=== PATIENT | female | born 1985 | race Caucasian/White ===

== ENCOUNTER → 2020-06-03 10:29 | Outpatient (BNVA) | payer OTHER, SELFPAY | PROVIDERS: Family Provider Family Medicine; PCP Family Medicine; Visit Provider Obstetrics & Gynecology | DX: N94.6 Dysmenorrhea, unspecified (principal); N85.2 Hypertrophy of uterus; N83.02 Follicular cyst of left ovary; N83.01 Follicular cyst of right ovary | CPT/HCPCS: 76830 ==

== ENCOUNTER → 2020-07-14 08:05 | Outpatient (BNVA) | payer OTHER, SELFPAY | PROVIDERS: Family Provider Family Medicine; PCP Family Medicine; Visit Provider Surgery | DX: K62.5 Hemorrhage of anus and rectum (principal); Z20.828 Contact with and (suspected) exposure to other viral communicable diseases; Z11.59 Encounter for screening for other viral diseases | CPT/HCPCS: 87635 ==

== ENCOUNTER → 2020-07-27 10:53 | Outpatient (BNVA) | payer OTHER, SELFPAY | PROVIDERS: PCP Family Medicine; Visit Provider Surgery | DX: K62.5 Hemorrhage of anus and rectum (principal) | CPT/HCPCS: 87635 ==

== ENCOUNTER 2020-08-01 07:07 | Day surgery (SDC) | payer OTHER, SELFPAY ==
[2020-08-01 07:21] VITALS: BP 134/98; PULSE 121; RESP 18; TEMP 37.1; O2SAT 99
[2020-08-01 07:33] LABS: OR HCG Qualitative Urine Negative (Negative)
[2020-08-01] MEDS: sodium chloride 0.9% 1,000 ML 30 ML IV (07:40)
--- NOTE | 2020-08-01 08:12 | P.ANESASSM_ITS ---
Pre-Anesthetic Assessment Pre-Anesthetic Assessment: Height/Weight: Height 1.55 m Weight 72.121 kg Temp Pulse Resp BP Pulse Ox 98.8 F 121 H 18 134/98 99 08/01/20 07:21 08/01/20 07:21 08/01/20 07:21 08/01/20 07:21 08/01/20 07:21 Preop Diagnosis: Bleeding per rectum Proposed Procedure: Operation Date: 08/01/20 08:35 Proposed Procedures p Colonoscopy 82033 [id number] K62.5 K64.9(Not Applicable) - Riki Dawson MD s Exam Under Anesthesia(Not Applicable) - Riki Dawson MD s Hemorroidectomy(Not Applicable) - Riki Dawson MD Last intake: Intake Last Liquid Date 08/01/20 Last Liquid Time 02:30 Last Solid Date 07/31/20 Social: Social History: No alcohol and No tobacco Exam: Pre-Anes Outpt Exam: alert, oriented x 3, clear to auscultation bilaterally and regular rate & rhythm Airway: Submandibular: WNL Cervical ROM: WNL MP: 2 Dentition: Full Pulmonary: Pulmonary: None reported CV/HEM: CV/HEM: None reported : : None reported Hepatic: Hepatic: None reported GI: Comments: Rectal bleeding Metabolic: Comments: Obese Musc/skel: Musc/skel: None reported Neuropsych: Neuropsych: Anxiety and Depression Anesthetic Plan: ASA status: 2 Anesthesia: MAC Other: h/o PONV Risk of > 500 ml blood loss (7ml/kg in children): No PFSH Anesthesia PFSH: Medical History Anxiety and depression Symptoms on and off since a teenager and was diagnosed in 2010 and has been on antidepressants since then. Is currently on medication managed by PMD. She does not have a therapist No pertinent past medical history Denies diabetes, asthma, hypertension, seizures, DVT/PE PCP: Dr. Mitchell Surgical History S/P left knee arthroscopy S/P ORIF (open reduction internal fixation) fracture 2009, left arm S/P tonsillectomy in 1994 S/P tubal ligation 01/13/2015-laparoscopic bilateral partial salpingectomy for sterilization by Dr. Hodges at [facility] [place]. Pathology showed complete transection and normal morphology. Family History Grandmother Breast cancer maternal, diagnosed in her 60s Diabetes paternal Hypertension paternal Heart disease paternal Mother Diabetes Father Diabetes Hyperlipidemia Hypertension Heart disease Pancreatic cancer Brother Diabetes x 2 Hypertension x 2 Colon cancer diagnosed at age 45 when he had a colonoscopy for rectal bleeding Family/Other Pancreatic cancer paternal uncle Grandfather Heart disease paternal Denies family history of Ovarian cancer DVT (deep venous thrombosis) Pulmonary embolism Uterine cancer Thyroid condition Female Reproductive History: Date of last menstrual period: 07/19/20 Data Anesthesia Other Labs: Laboratory Results - last 48 hr 08/01/20 07:31 Urine HCG, Qual Negative Cardiac Studies: No Data to Display
--- NOTE | 2020-08-01 08:37 | W.PM.OPSFHP ---
Same Day Surgery H&P Indication for Procedure/HPI DATE OF PROCEDURE: August 01, 2020 CHIEF COMPLAINT/INDICATIONFOR SURGICAL PROCEDURE: Bleeding per rectum PREOP DIAGNOSIS: Bleeding per rectum PLANNED PROCEDRUE: Operation Date: 08/01/20 08:35 Proposed Procedures p Colonoscopy [id number] K62.5 K64.9(Not Applicable) - Riki Dawson MD s Exam Under Anesthesia(Not Applicable) - Riki Dawson MD s Hemorroidectomy(Not Applicable) - Riki Dawson MD This is a pleasant 35 years old female patient referred to my practice for further evaluation as patient believes that she had history of hemorrhoids and she has been having issues for the past 20 years particularly after her second delivery. Patient also reports history of her brother had history of colon cancer at age of 45. She reports intermittent bleeding with stool. She comes today for further evaluation for potential intervention. She reports the blood comes usually when she is constipated otherwise she does not feel hemorrhoids but she used to have them before many years. Interim history 08/01/2020 Patient comes today for colonoscopy with possible biopsy and examination under anesthesia with possible hemorrhoidectomy. ROS All systems have been reviewed negative except as per the above or per problem list Medications/Allergies* Home Medications Medication Instructions Recorded Confirmed Type cetirizine 10 mg capsule 10 mg PO DAILY 05/25/20 08/01/20 History cholecalciferol (vitamin D3) 125 125 mcg PO DAILY 05/25/20 08/01/20 History mcg (5,000 unit) capsule escitalopram oxalate 20 mg tablet 20 mg PO DAILY 05/25/20 08/01/20 History bupropion HCl 150 mg PO QAM 07/15/20 08/01/20 History Allergies/Adverse Reactions Allergy/AdvReac Type Severity Reaction Status Date / Time venlafaxine [From Effexor] AdvReac nausea, Verified 08/01/20 08:38 body aches, sweating Current Medications: Generic Name Dose Route Start Last Admin Trade Name Freq PRN Reason Stop Dose Admin Sodium Chloride 1,000 mls @ 30 mls/hr 08/01/20 07:15 08/01/20 07:40 Sodium Chloride 0.9% IV 08/02/20 07:14 30 mls/hr .Q24H EUGENIO Administration Pertinent History/Comorbid Conditions* Medical History (Updated 06/02/20 @ 13:14 by Riki Dawson MD) Anxiety and depression Symptoms on and off since a teenager and was diagnosed in 2010 and has been on antidepressants since then. Is currently on medication managed by PMD. She does not have a therapist No pertinent past medical history Denies diabetes, asthma, hypertension, seizures, DVT/PE PCP: Dr. Mitchell Surgical History (Updated 05/27/20 @ 08:32 by Lorenzo Gary MD) S/P left knee arthroscopy S/P ORIF (open reduction internal fixation) fracture 2009, left arm S/P tonsillectomy in 1994 S/P tubal ligation 01/13/2015-laparoscopic bilateral partial salpingectomy for sterilization by Dr. Hodges at [facility] [place]. Pathology showed complete transection and normal morphology. Family History (Updated 05/25/20 @ 15:40 by Lidia Dejesus RN) Colon cancer Brother diagnosed at age 45 when he had a colonoscopy for rectal bleeding Pancreatic cancer Father Family/Other paternal uncle Diabetes Grandmother paternal Mother Father Brother x 2 Heart disease Grandmother paternal Father Grandfather paternal Hyperlipidemia Father Breast cancer Grandmother maternal, diagnosed in her 60s Hypertension Grandmother paternal Father Brother x 2 Denies family history of Ovarian cancer DVT (deep venous thrombosis) Pulmonary embolism Uterine cancer Thyroid condition Pertinent Exam Findings alert, oriented x 3, clear to auscultation bilaterally, regular rate & rhythm and procedure specific exam findings (Abdominal examination nontender nondistended soft) Recommendations Surgery/Procedure today (Colonoscopy with possible biopsy possible polypectomy with examination under anesthesia possible hemorrhoidectomy) Coding Level of Care Code Acute Box Truck Driver for Charli Multani
[2020-08-01 09:00] VITALS: BP 95/60; PULSE 94; RESP 18; TEMP 36.4; O2SAT 95
--- NOTE | 2020-08-01 09:26 | P.OP_ITS ---
Operative Report Date of procedure: August 01, 2020 Pre-op Diagnosis: Bleeding per rectum Post-op Diagnosis: Small left lower lateral external hemorrhoid without complication, otherwise normal colonoscopy Post-op Findings: Small left lower lateral external hemorrhoid without complication, otherwise normal colonoscopy Procedure Done: Colonoscopy with Examination under anaesthesia Surgeon: Riki Dawson Stripping Cutter And Winder: insulation technician Cheko Shaw nurse Chayito Anesthesia: MAC (district fire chief Marquez) Estimated blood loss (mL): 0 Condition: stable Disposition: same day Brief History: This is a pleasant 35 years old female patient referred to my practice for further evaluation as patient believes that she had history of hemorrhoids and she has been having issues for the past 20 years particularly after her second delivery. Patient also reports history of her brother had history of colon cancer at age of 45. She reports intermittent bleeding with stool. She comes today for further evaluation for potential intervention. She reports the blood comes usually when she is constipated otherwise she does not feel hemorrhoids but she used to have them before many years. I did cher-ae heights the patient for Colonoscopy with EUA and possible hemorroidectomy. Informed consent per chart Procedure: Patient was identified in the holding area, was taken to the OR placed first in supine position, then was placed in left lateral position, time- out was done verifying the patient's name, date of , and procedure, all were in agreement. IV propofol was infused by anesthesia Perianal examination showed small left lower lateral external hemorrhoid without complication and digital rectal examination showed no masses or blood, no evidence of fissures or sinuses or fistulae or induration or abscess formation or cerpitus or perineal body abnormalities. Following that the colonoscope was then introduced via the anus under direct visualization, all the way to the cecum, prep of the colon was appropriate, there were no polyps identified or masses or diverticular disease or strictures, the scope was then retrieved back ,time for withdrawal exceeded 6 minutes, CO2 gas was deflated on the way out. Retroflex was done and showed insignificant findings. Patient was taken to the recovery area in stable condition I was present for the whole entire procedure
[2020-08-01 10:03] VITALS: BP 105/72; PULSE 88; RESP 18; O2SAT 98
--- NOTE | 2020-08-01 11:33 | PM.PACU ---
PACU note PACU note: VSS Post-Anesthesia Exam: awake Disposition: discharged
== END 2020-08-01 10:13 | disposition home or self-care (01) ==
PROVIDERS: Anesthesiology; PCP Family Medicine; Visit Provider Surgery
PROC: 0DJD8ZZ Inspection of Lower Intestinal Tract, Via Natural or Artificial Opening Endoscopic (ICD-10-PCS; CPT 45378; principal; 2020-08-01 08:35)
DX: K92.1 Melena (principal); K64.4 Residual hemorrhoidal skin tags; Z80.0 Family history of malignant neoplasm of digestive organs; Z83.3 Family history of diabetes mellitus; Z80.3 Family history of malignant neoplasm of breast; Z82.49 Family history of ischemic heart disease and other diseases of the circulatory system; E66.8 Other obesity; Z68.30 Body mass index [BMI] 30.0-30.9, adult
CPT/HCPCS: 12345; 45378; 81025; 84703; J2704; J7030

== ENCOUNTER → 2021-03-22 09:55 | Outpatient (BNVA) | payer OTHER, SELFPAY | PROVIDERS: PCP Family Medicine; Visit Provider Nurse Practitioner Family | DX: Z20.822 Contact with and (suspected) exposure to COVID-19 (principal) | CPT/HCPCS: 87635 ==

== ENCOUNTER → 2021-08-03 15:50 | Outpatient (BNVA) | payer OTHER, SELFPAY | PROVIDERS: PCP Family Medicine; Visit Provider Nurse Practitioner Family | DX: Z20.822 Contact with and (suspected) exposure to COVID-19 (principal) | CPT/HCPCS: 87426 ==

== ENCOUNTER → 2021-08-29 17:31 | Outpatient (BNVA) | payer OTHER, SELFPAY | PROVIDERS: PCP Family Medicine; Visit Provider Nurse Practitioner Family | DX: Z20.822 Contact with and (suspected) exposure to COVID-19 (principal); Z11.52 Encounter for screening for COVID-19 | CPT/HCPCS: 87635 ==

== ENCOUNTER 2022-03-20 16:10 | Outpatient (CLI) | payer OTHER, SELFPAY | END 2022-03-20 16:11 | disposition home or self-care (01) | LOC: SLEEP 16:12 | PROVIDERS: PCP Family Medicine; Visit Provider Family Medicine | DX: R40.0 Somnolence (principal); G47.10 Hypersomnia, unspecified | CPT/HCPCS: G0399 ==

== ENCOUNTER → 2022-10-10 10:18 | Outpatient (BNVA) | payer OTHER, SELFPAY | PROVIDERS: PCP Family Medicine; Visit Provider Family Medicine | DX: Z00.00 Encounter for general adult medical examination without abnormal findings (principal); Z51.81 Encounter for therapeutic drug level monitoring | CPT/HCPCS: 80053; 80061; 82306; 84443; 85025 ==

== ENCOUNTER → 2022-11-29 12:00 | Outpatient (BNVA) | payer OTHER, SELFPAY | PROVIDERS: PCP Family Medicine; Visit Provider Nurse Practitioner Women's Health | DX: Z12.4 Encounter for screening for malignant neoplasm of cervix (principal) | CPT/HCPCS: 87624 ==

== ENCOUNTER 2023-02-12 22:22 | Emergency (ER) | payer OTHER, SELFPAY ==
[2023-02-12 22:25] VITALS: BP 139/84; PULSE 111; RESP 12; TEMP 36.8; O2SAT 99; BMI 27.3
[2023-02-12 22:30] VITALS: BP 110/78; O2SAT 98
--- NOTE | 2023-02-12 22:42 | ED_ITS ---
HPI - Back Pain/Injury General: Chief Complaint: Back Pain/Injury Stated Complaint: Rt arm tingling going up face Time Seen by Provider: 02/12/23 22:23 Source: patient Mode of arrival: ambulatory Limitations: no limitations History of Present Illness: 38-year-old female states that she strained her left lower back 2 days ago states she usually sleeps on her left side is been sleeping on her right side states she is now getting some numbness from her neck down her right arm. Some slight right-sided neck pain she denies any other fever denies any weakness. Associated symptoms: Deny abdominal pain, chills, fever(s), nausea or vomiting Review of Systems Const: Denies: fever(s), chills, body aches or change in appetite Eyes: Denies: blurry vision or eye discomfort ENMT: Denies: throat pain or dental pain Card: Denies: chest pain Resp: Denies: dyspnea GI: Denies: abdominal pain, nausea, vomiting or diarrhea Musc: Reports: back pain; Denies: neck pain Skin/Breast: Denies: rash Neuro: Reports: numbness in extremities; Denies: headache(s) PFSH ED PFSH: Medical History Anxiety and depression Symptoms on and off since a teenager and was diagnosed in 2010 and has been on antidepressants since then. Is currently on medication managed by PMD. She does not have a therapist No pertinent past medical history Denies diabetes, asthma, hypertension, seizures, DVT/PE PCP: Dr. Mitchell Surgical History History of colonoscopy with polypectomy (~07/2020) S/P left knee arthroscopy 2010 S/P ORIF (open reduction internal fixation) fracture 2009, left arm S/P tonsillectomy in 1994 S/P tubal ligation 01/13/2015-laparoscopic bilateral partial salping[place] [facility] [place] Pathology showed complete transection and normal morphology. Family History Grandmother Breast cancer maternal, diagnosed in her 60s Diabetes paternal Hypertension paternal Heart disease paternal Mother Diabetes Father Diabetes Hyperlipidemia Hypertension Heart disease Pancreatic cancer Brother Diabetes x 2 Hypertension x 2 Colon cancer diagnosed at age 45 when he had a colonoscopy for rectal bleeding Family/Other Pancreatic cancer paternal uncle Grandfather Heart disease paternal Denies family history of Ovarian cancer DVT (deep venous thrombosis) Pulmonary embolism Uterine cancer Thyroid condition Social History Smoking and tobacco status: never smoked Physical Exam Const: COMMON NORMALS: no acute distress, patient oriented x3 and healthy appearing HENMT: COMMON NORMALS: normocephalic and atraumatic HEAD & SCALP: normocephalic and atraumatic Neck/C-Spine: COMMON NORMALS: full ROM, supple and no meningeal signs Chest: COMMONS NORMALS: normal inspection of the chest and normal palpation of entire chest wall Resp: COMMON NORMALS: normal respiratory effort, No retractions, No use of accessory muscles and clear to auscultation bilaterally AUSCULTATION: clear to auscultation bilaterally Cardio: COMMON NORMALS: regular rate and No murmurs present (Cardio) RATE: regular rate GI: INSPECTION: Yes normal to inspection Back/Pelvis: OTHER: tenderness over left lower lumbar Extremity: COMMON NORMALS: normal to inspection and full ROM Neuro: COMMON NORMALS: patient oriented x3, moves all extremities and no focal motor deficits MENINGEAL SIGNS: Yes no meningeal signs MOTOR EXAM: 5/5 motor strength present throughout Psych: COMMON NORMALS: mental status grossly normal, Normal thought process present and cooperative THOUGHT PROCESS: Normal thought process present Skin: COMMON NORMALS: no rashes or lesions noted and no wounds GENERAL SKIN EXAM: no rashes or lesions noted Course Vital Signs: Vital signs: Vital Signs Temperature 98.2 F 02/12/23 22:25 Pulse Rate 67 02/12/23 23:38 Respiratory Rate 14 02/12/23 23:38 Blood Pressure 123/80 02/12/23 23:38 Pulse Oximetry 98 02/12/23 23:38 Oxygen Delivery Me thod Room Air 02/12/23 22:25 MDM - Back Pain/Injury Medical Decision Making Patient presents here with some paresthesias likely from sleeping on her right side wrong no signs of stroke distal pulses sensation intact she does have some low back pain likely low back strain we will start her on Naprosyn and Robaxin she is to follow-up with PCP and return if worsening. Medical Records I reviewed the patient's medical records. Labs I reviewed the patient's lab results. EKG Data EKG 1: I personally reviewed and interpreted this EKG as follows: EKG interpretation date: 02/12/23 EKG interpretation time: 22:44 Interpretation: sinus tach hr [address] or t wave abnormalities qrs 90 qtc 388 Discharge Plan Discharge Patient Disposition: Home Clinical Impression: Low back pain, Paresthesia Condition: Stable Prescriptions: New methocarbamol 750 mg tablet 750 mg PO Q6H PRN (Reason: spasms) Qty: 20 0RF Naprosyn 500 mg tablet 500 mg PO BID PRN (Reason: pain) Qty: 20 0RF No Action Zyrtec 10 mg capsule 10 mg PO DAILY cholecalciferol (vitamin D3) 125 mcg (5,000 unit) capsule 125 mcg PO DAILY azithromycin [Zithromax] 250 mg tablet See Rx Instructions PO .COMPLEX Qty: 6 0RF Rx Instructions: For 250 mg dose pack: take 500 mg today (day 1), then 250 mg for 4 days (days 2-5) PO lamotrigine [Lamictal] 25 mg tablet 50 mg PO DAILY Discharge Orders: Discharge ED (Routine); Ordered 02/12/23 Ordered By: Camille Dietz Referrals: Modesto Mitchell MD [Primary Care Provider] - 1-3 days Discharge Diet: Advance as tolerated Discharge Activity: Resume usual activity Patient Instructions: Paresthesia (ED), Back Pain (ED) Coding Level of Care Code ED Transit Planner for Charli Multani
--- NOTE | 2023-02-12 22:44 | ECG_ITS ---
[facility] Test Date: 2023-02-12 Pat Name: Kayley Ca Department: Room: Gender: Female Lehr Cutter: : 1985 Requested By: Camille Dietz Order Number: [id number] Lakhwinder MD: Lloyd Villalta M.D. Measurements Intervals [place] Rate: 104 P: 44 NV: 148 QRS: 26 QRSD: 90 T: 32 QT: 328 QTc: 432 Interpretive Statements SINUS TACHYCARDIA No previous ECG available for comparison Electronically Signed On 02-13-2023 13:54:25 CDT by Lloyd Villalta M.D. [email or web address]
[2023-02-12] MEDS: dexamethasone 10 mg/mL INJ IM (22:47)
[2023-02-12] MEDS: ketorolac 60 mg/2 mL INJ IM (22:48)
[2023-02-12 23:38] VITALS: BP 123/80; PULSE 67; RESP 14; O2SAT 98
== END 2023-02-12 23:41 | disposition home or self-care (01) ==
PROVIDERS: Emergency Provider Emergency Medicine; PCP Family Medicine
DX: R20.2 Paresthesia of skin (principal); M54.50 Low back pain, unspecified
CPT/HCPCS: 93005; 96372; 99284; J1100; J1885

== ENCOUNTER → 2023-09-21 14:47 | Outpatient (BNVA) | payer OTHER, SELFPAY | PROVIDERS: PCP Family Medicine; Visit Provider Registered Nurse Neonatal Intensive Care | DX: Z20.828 Contact with and (suspected) exposure to other viral communicable diseases (principal) | CPT/HCPCS: 87400 ==

== ENCOUNTER 2024-03-16 08:50 | Outpatient (CLI) | payer OTHER, SELFPAY ==
--- NOTE | 2024-03-16 09:00 | MM_ITS ---
WS: [id number] BILATERAL SCREENING DIGITAL TOMOSYNTHESIS MAMMOGRAM WITH CAD HISTORY: Z12.31 - Encounter for screening mammogram for malignant ... COMPARISON: None available. Bilateral CC and MLO views with tomosynthesis and synthetic mammography submitted. Computer aided det ection analyzed. Breast composition: The breasts are heterogeneously dense, which may obscure small masses. No suspici ous masses, microcalcifications or architectural distortion. MM/[place] [id number] IMPRESSION: BI-RADS: 1-Negative FOLLOW UP: 1 Year Follow-up
== END 2024-03-16 08:51 | disposition home or self-care (01) ==
LOC: RAD 08:51
PROVIDERS: PCP Family Medicine; Visit Provider Nurse Practitioner Women's Health
DX: Z12.31 Encounter for screening mammogram for malignant neoplasm of breast (principal); R92.333 Mammographic heterogeneous density, bilateral breasts
CPT/HCPCS: 77063; 77067

== ENCOUNTER 2024-03-30 17:20 | Outpatient (CLI) | payer OTHER, SELFPAY ==
--- NOTE | 2024-03-30 17:26 | XRR_ITS ---
PROCEDURE INFORMATION: Exam: XR Left Forearm Exam date and time: 03/30/2024 5:29 PM Age: 39 years old Clinical indication: Lower or forearm; Prior surgery; Surgery date: 6+ months; Surgery type: Lt forearm radius/ulna hardware 2009; Patient HX: Pain/knot on the left forearm since Saturday evening. PT has surgery in 2009 placing hardware on the radius and ulna. ; Additional info: Prior fracture with hardware TECHNIQUE: Imaging protocol: Radiologic exam of the left forearm. Views: 2 views. COMPARISON: No relevant prior studies available. FINDINGS: Bones/joints: Intact plate and screw fixation at the distal radial and ulnar shafts. No evidence of hardware complication. No acute fracture or dislocation. Mineralization is normal. Joints are maintained. Soft tissues: Unremarkable. XR/XR forearm LT 2V [id number] IMPRESSION: No acute findings.
== END 2024-03-30 17:21 | disposition home or self-care (01) ==
LOC: RAD 17:20
PROVIDERS: PCP Family Medicine; Visit Provider Nurse Practitioner
DX: S69.92XA Unspecified injury of left wrist, hand and finger(s), initial encounter (principal); Z87.81 Personal history of (healed) traumatic fracture
CPT/HCPCS: 73090

== ENCOUNTER → 2024-05-08 08:25 | Outpatient (BNVA) | payer OTHER, SELFPAY | PROVIDERS: PCP Family Medicine; Visit Provider Student in an Organized Health Care Education/Training Program | DX: M79.632 Pain in left forearm; T84.84XA Pain due to internal orthopedic prosthetic devices, implants and grafts, initial encounter; Y79.2 Prosthetic and other implants, materials and accessory orthopedic devices associated with adverse incidents | CPT/HCPCS: 73090 ==

== ENCOUNTER 2024-05-18 09:54 | Outpatient (CLI) | payer OTHER, SELFPAY ==
--- NOTE | 2024-05-18 10:00 | CT_ITS ---
WS: [id number] CT LEFT FOREARM, NONCONTRAST HISTORY: FOREARM PAIN Technique: All CT scans at [facility] use at least one of these dose optimization techniques: automated exposure control; mA and/or kV adjustment per patient size (includes targeted exams where dose is matched to clinical indication); or iterative reconstruction. DLP: 163.01 mGy.cm COMPARISON: Radiograph 05/08/2024 Plate and screw fixation within the mid to distal thirds of the radius and ulna are identified. No ugalde rdware fracture is identified. No lucency is identified surrounding the screws. There is no fracture. Normal soft tissues. No significant muscle atrophy. No edema or fluid collections. CT/CT forearm LT wo con* [id number] IMPRESSION: 1. Plate and screw fixation of the mid to distal radius and ulna without compl ication. No persistent fracture or nonfusion. 2. No soft tissue mass or edema.
== END 2024-05-18 09:55 | disposition home or self-care (01) ==
LOC: RAD 09:54
PROVIDERS: PCP Family Medicine; Visit Provider Student in an Organized Health Care Education/Training Program
DX: M79.632 Pain in left forearm (principal); Z96.698 Presence of other orthopedic joint implants
CPT/HCPCS: 73200

== ENCOUNTER 2024-06-15 12:59 | Day surgery (SDC) | payer OTHER, SELFPAY ==
[2024-06-15] VITALS (12 sets, daily range): BP systolic 112–132; BP diastolic 61–93; PULSE 81–113; RESP 14–21; TEMP 36.6–37.1; O2SAT 95–100; BMI 25.6
[2024-06-15 13:43] LABS: OR HCG Qualitative Urine Negative (Negative)
--- NOTE | 2024-06-15 13:57 | P.ANESASSM_ITS ---
Pre-Anesthetic Assessment Height/Weight: Height 5 ft 1.5 in Temp Pulse Resp BP Pulse Ox O2 Del Method 98.7 F 111 H 16 132/93 98 Room Air 06/15/24 13:29 06/15/24 13:29 06/15/24 13:29 06/15/24 13:29 06/15/24 13:29 06/15/24 13:35 Preop Diagnosis: Forearm pain Operation Date: 06/15/24 14:40 Proposed Procedures p radius and ulnar shaft hardware removal(Left) - Blayne [place], DO Was Beta Thalia taken within 24 hours: N/A Was Clonidine taken within 24 hours: N/A Last intake: Intake Last Liquid Date 06/15/24 Last Liquid Time 02:00 Last Solid Date 06/14/24 Last Solid Time 19:30 Social No alcohol and No tobacco Exam alert, oriented x 3, clear to auscultation bilaterally and regular rate & rhythm Airway Submandibular: within normal limits Cervical ROM: within normal limits Mallampati: Class II Dentition: full Anesthetic Plan ASA status: 1 Anesthesia: MAC Other: No prior issues with anesthesia NPO since yesterday History of anxiety/depression Patient denies any pulmonary cardiac issues test negative METs greater than 4 Plan for MAC anesthetic with preop nerve block Medications/Allergies Home Medications Medication Instructions Recorded Confirmed Last Taken Type cetirizine 10 mg capsule (Zyrtec) 10 mg PO DAILY 05/25/20 06/11/24 06/11/24 History cholecalciferol (vitamin D3) 125 125 mcg PO DAILY 05/25/20 06/11/24 06/11/24 History mcg (5,000 unit) capsule modafinil 100 mg tablet (Provigil) 100 mg PO DAILY 06/11/24 06/11/24 06/11/24 History Allergies Allergy/AdvReac Type Severity Reaction Status Date / Time venlafaxine [From Effexor] AdvReac nausea, Verified 05/21/24 08:55 body aches, sweating [facility] Anesthesia Medical History Psychiatric care Anxiety and depression Symptoms on and off since a teenager and was diagnosed in 2010 and has been on antidepressants since then. Is currently on medication managed by PMD. She does not have a therapist No pertinent past medical history Denies diabetes, asthma, hypertension, seizures, DVT/PE PCP: Dr. Mitchell Surgical History History of colonoscopy with polypectomy (~07/2020) S/P tonsillectomy in 1994 S/P tubal ligation 01/13/2015-laparoscopic bilateral partial salpingectomy for sterilization by Dr. Hodges at [facility] [place] Pathology showed complete transection and normal morphology. S/P left knee arthroscopy 2010 S/P ORIF (open reduction internal fixation) fracture 2009, left arm Family History Grandmother Breast cancer maternal, diagnosed in her 60s Diabetes paternal Hypertension paternal Heart disease paternal Mother Diabetes Father Diabetes Hyperlipidemia Hypertension Heart disease Pancreatic cancer Brother Diabetes x 2 Hypertension x 2 Colon cancer diagnosed at age 45 when he had a colonoscopy for rectal bleeding Family/Other Pancreatic cancer paternal uncle Grandfather Heart disease paternal Denies family history of Ovarian cancer DVT (deep venous thrombosis) Pulmonary embolism Uterine cancer Thyroid disease Social History Smoking and tobacco/nicotine status: former use of tobacco/nicotine Female Reproductive History Date of last menstrual period: 05/28/24 Data Anesthesia Cardiac Studies: Holter Monitor 06/22/21
[2024-06-15] MEDS: sodium chloride 0.9% 1,000 ML 30 ML IV (14:10)
--- NOTE | 2024-06-15 14:12 | W.PM.OPSFHP ---
Same Day Surgery H&P Indication for Procedure/HPI DATE OF PROCEDURE: June 15, 2024 CHIEF COMPLAINT/INDICATIONFOR SURGICAL PROCEDURE: Left radius and ulnar shaft painful hardware PREOP DIAGNOSIS: Left radius and ulnar shaft painful orthopedic heart PLANNED PROCEDURE: Operation Date: 06/15/24 14:40 Proposed Procedures p radius and ulnar shaft hardware removal(Left) - Blayne Jefferson DO Medications/Allergies* Home Medications Medication Instructions Recorded Confirmed Type cetirizine 10 mg capsule (Zyrtec) 10 mg PO DAILY 05/25/20 06/11/24 History cholecalciferol (vitamin D3) 125 125 mcg PO DAILY 05/25/20 06/11/24 History mcg (5,000 unit) capsule modafinil 100 mg tablet (Provigil) 100 mg PO DAILY 06/11/24 06/11/24 History Allergies/Adverse Reactions Allergy/AdvReac Type Severity Reaction Status Date / Time venlafaxine [From Effexor] AdvReac nausea, Verified 05/21/24 08:55 body aches, sweating Current Medications: Generic Name Dose Route Start Last Admin Trade Name Freq PRN Reason Stop Dose Admin Sodium Chloride 1,000 mls @ 30 mls/hr 06/15/24 13:15 06/15/24 14:10 Sodium Chloride 0.9% IV 06/16/24 13:14 30 mls/hr .Q24H EUGENIO Administration Pertinent History/Comorbid Conditions* Medical History (Updated 05/21/24 @ 11:33 by Roger Watson MD) Psychiatric care Anxiety and depression Symptoms on and off since a teenager and was diagnosed in 2010 and has been on antidepressants since then. Is currently on medication managed by PMD. She does not have a therapist No pertinent past medical history Denies diabetes, asthma, hypertension, seizures, DVT/PE PCP: Dr. Mitchell Surgical History (Updated 09/10/21 @ 12:04 by Lorenzo Gary MD) History of colonoscopy with polypectomy (~07/2020) S/P tonsillectomy in 1994 S/P tubal ligation 01/13/2015-laparoscopic bilateral partial salpingectomy for sterilization by Dr. Hodges at [facility] [place]. Pathology showed complete transection and normal morphology. S/P left knee arthroscopy 2010 S/P ORIF (open reduction internal fixation) fracture 2009, left arm Family History (Updated 05/25/20 @ 15:40 by Lidia Dejesus RN) Colon cancer Brother diagnosed at age 45 when he had a colonoscopy for rectal bleeding Pancreatic cancer Father Family/Other paternal uncle Diabetes Grandmother paternal Mother Father Brother x 2 Heart disease Grandmother paternal Father Grandfather paternal Hyperlipidemia Father Breast cancer Grandmother maternal, diagnosed in her 60s Hypertension Grandmother paternal Father Brother x 2 Denies family history of Ovarian cancer DVT (deep venous thrombosis) Pulmonary embolism Uterine cancer Thyroid disease Social History Smoking and tobacco/nicotine status: former use of tobacco/nicotine Pertinent Exam Findings alert, oriented x 3, operative site marked and procedure specific exam findings Please refer to detailed orthopedic examination on 05/08/2024: Examination of the left forearm demonstrates patient has incisions over the radius and ulna these all appear to be well-healed no signs of infection. Slight prominence over the subcutaneous border of the ulna this appears to be related to the hardware, significantly tender to palpation. There is no clinical deformity noted about the left forearm. Patient does have tenderness most pronounced over the ulnar border over the hardware. Once again no signs of infection. She is able to perform cardinal hand movements. She does have positive Tinel's over the hardware on the ulna. Negative Tinel's or median nerve compression test at the carpal tunnel. There is palpation proximally at the elbow. Left upper extremity is warm well-perfused brisk capillary refill less than 2 seconds. Recommendations Surgery/Procedure today Other Plans: Plan to proceed to the OR today for left radius and ulna shaft orthopedic hardware removal. Patient had a CT scan confirming healed radius and ulnar shaft fractures. At this point time patient understands the ins and outs procedure the risk benefits complication alternatives surgery and through shared decision making elected proceed with surgical invention at this time. All questions answered at this time. Coding Level of Care Code Acute Code for Chg Fwd
[2024-06-15] MEDS: ketorolac 30 mg/mL INJ IVP (14:25)
[2024-06-15] MEDS: acetaminophen 1,000 MG/100 ML PIGGYBACK 400 MG IV (14:25)
[2024-06-15] MEDS: scopolamine 1.5 Patch 1 PATCH TRANSDERMA (14:25)
[2024-06-15] MEDS: ceFAZolin 2,000 MG in sodium chloride 0.9% (plus) 50 ML 100 MG IV (14:35)
--- NOTE | 2024-06-15 14:35 | ANES.PROC ---
Anesthesia Procedures Procedure/Date: 06/15/24 Nerve Block ^: Nerve Block 1: Main Anesthesia: other (100mcg fentanyl and 2mg versed) Time Out Performed: Yes Nerve block location: supraclavicular Anesthesia monitors applied: pulse oximetry, EKG, BP cuff and oxygen Nerve block position: supine Anesthetic Used: ropivicaine 0.5% Amount of anesthesia used (mL): 30 Ultrasound used to: recognize landmarks Nerve Stimulator Used?: Yes Interscalene/Femoral BLK: other needle (pjunk) Injection: neg aspiration of heme Patient Tolerated Procedure: well Complications: none Additional Comments: decadron 4mg added to block
--- NOTE | 2024-06-15 14:39 | SUR.PREOP ---
14:15 left super clavicular nerve block performed by doctor Hylton. PT on monitor showing NSR, and O2 via nasal cannula. 30ml of 0.5% ropivacaine used. PT tolerated procedure well.
--- NOTE | 2024-06-15 15:54 | XR_ITS ---
WS: [id number] C-ARM RADIOGRAPHS LEFT FOREARM; 3 IMAGES HISTORY: OR PICS COMPARISON: 05/08/2024 Plate and screws in the mid to distal radius and ulna have been removed. Screw tracks are noted. Norm al alignment. No residual fracture line identified. XR/XR forearm LT 2V [id number] IMPRESSION: Intraoperative imaging during hardware removal from the radius and ulna.
--- NOTE | 2024-06-15 16:24 | P.BOP_ITS ---
Date of Procedure: [June 15, 2024] Surgeon: [Dr. Jefferson DO] Concrete Craftsman(s): [Evelio Jefferson PA-C] Procedure(s) performed: [Left radius shaft orthopedic hardware removal and left ulnar shaft orthopedic hardware removal] Findings of the procedure(s): [Left radius painful orthopedic hardware and left ulnar painful orthopedic hardware. Procedure went well and as planned.] Estimated blood loss: [20 mL] Specimen(s) removed: [Orthopedic hardware removed?2 plates and 12 screws] Post-operative diagnosis: [Left radius painful orthopedic hardware and left ulnar painful orthopedic hardware]
--- NOTE | 2024-06-15 16:26 | PM.PACU ---
PACU note Narrative: Patient is a 39-year-old female that had a left radius and ulna shaft orthopedic hardware removal. Patient transferred to PACU in stable condition. Pain is well controlled. Dressing on hand is dry and in place. Patient's fingers are warm and well-perfused. Unable to perform any further assessment on motor sensation due to residual anesthetic. Exam: unarousable Disposition: discharged
[2024-06-15] MEDS: meperidine 50 mg/mL INJ 12.5 MG IVP (16:40)
--- NOTE | 2024-06-15 17:10 | P.OP_ITS ---
Operative Report Date of procedure: June 15, 2024 Pre-op diagnosis: Left forearm radius and ulna orthopedic hardware painful Post-op diagnosis: Same Post-op findings: See operative report narrative Procedure done: Left radius shaft orthopedic hardware removal Left ulnar shaft orthopedic hardware removal Implants: Removal of orthopedic hardware to the radial shaft and ulnar shaft Specimens removed/disposition: Orthopedic hardware removed 2 plates and 12 screws Surgeon: Blayne Jefferson DO Laboratory Miller: Evelio Jefferson PA-C: BEKA was necessary for assistance in this case with hand and forearm positioning to execute the procedure, retraction and protection of neurovascular structures as well as to assist with wound closure and dressing application. Anesthesia: General and Nerve Block Estimated blood loss: 20 mL 47min IV fluids: See anesthesia record Complications: None Findings: See operative report narrative Condition: stable Disposition: same day Brief History: Patient is a 39-year-old female who sustained a previous trauma to the left forearm having both bone forearm fracture and underwent ORIF to both of these. It has been years later and now she is having pain at the hardware and she would like to have this removed. At this point in time her fractures have healed completely with CT scan to confirm this we talked about treatment options far as continue nonoperative versus operative invention through shared decision-making she like to pursue surgical intervention of a left radius and ulnar shaft hardware removal. Patient understands the ins outs procedure the risk benefits complication alternatives surgery and through shared decision making like to proceed with surgical intervention today consent was reviewed and signed with patient. All questions answered. Procedure: Patient was seen eval in the preoperative holding area. Consent was reviewed and signed with patient. Correct extremity was then subsequently marked. Shana ent seen evaluated by anesthesia was cleared for surgery was taken back to the operative suite patient was placed in supine position operative parts well- padded patient appropriately secured to bed. Patient had an armboard applied to the left upper extremity. Patient underwent anesthesia per the anesthesia department. Left upper extremity was then prepped and draped in standard orthopedic fashion. Final timeout performed. Patient received appropriate preoperative antibiotics. Esmarch tourniquet was used exsanguinate the left upper extremity tourniquet was insufflated to 250 mmHg. I started off with the ulna. A standard incision made over the previous incision which is over the subcutaneous border. Sharp scalpel incision was made through skin and subcutaneous tissue. I then switched to Littler dissection scissors and came down directly over the ulna. I then encountered the plate and utilized Bovie as well as sharp scalpel excision and elevators to elevate and remove all scar tissue around the plates and screws. There is no signs of infection fracture site was healed. At this point in time I selected the appropriate headed screwdriver and then atraumatically removed all of the screws to the ulna and then utilized a periosteal elevator as well as an osteotome to remove the plate atraumatically. Been some slight bony overgrowth around the plate I utilized a rongeur to smooth out the edges as well as a curette over the screw sites and this completed the removal of the ulnar hardware. I subsequently thoroughly irrigated the wound bed and then proceeded with the ra gary. I then made a sharp scalpel incision over the previous radius incision which was more of a dorsal approach. Sharp scalpel incision was made through skin and subcutaneous tissue. Care to protect neurovascular structures and then switched to let the dissection scissors and spreading longitudinally and directly encountered the radius which was healed as well as the plate. At this point in time once I encountered the plate I utilized Bovie as well as sharp scalpel incision and elevators to elevate the scar tissue and excess bone off of the radius plate and screws. There is no signs of infection at the fracture site. This was healed. At this point I selected appropriate headed screwdriver and then atraumatically removed all the screws to the radius and then utilized a periosteal elevator as well as osteotome to remove the plate atraumatically some bone had slightly overgrown around the plate and I did utilize a rongeur to smooth out the edges as well as curette over the screw sites and this completed the removal of the radius hardware. I subsequently brought in fluoroscopic x- ray to take final x-rays confirmed no fracturing while removing the plate healed fracture and this was taken through motion and it was stable and confirmed under fluoroscopic imaging. All hardware is subsequently moved and was saved for the patient. This point in time thoroughly irrigation performed of the wound bed tourniquet deflated hemostasis satisfactory. For location perform 1 final time and then close this in layered fashion of 3-0 Vicryl suture and nylon suture for the skin. Patient was placed in a Xeroform 4 x 4's ABD and a volar splint. Patient taken to PACU in stable condition. Patient tolerated procedure well without issues or complications Disposition: Patient taken to PACU in stable condition recovering well patient received appropriate discharge directions pain medication will follow-up with us in 2 weeks. All questions answered.
--- NOTE | 2024-06-15 18:20 | ANE.PACU2 ---
Inpatient post-anesthesia follow up: Airway intact: Yes Vital signs: Temperature 97.9 F Pulse Rate 90 Respiratory Rate 16 Blood Pressure 112/80 Pulse Oximetry 98 Oxygen Delivery Me thod Room Air Oxygen Flow Rate 6 Fraction of Inspir ed Oxygen Hydration adequate: Yes Nausea and vomiting: No Pain level: 1 Mental status: Baseline
== END 2024-06-15 18:20 | disposition home or self-care (01) ==
PROVIDERS: Student in an Organized Health Care Education/Training Program; PCP Family Medicine; Visit Provider Student in an Organized Health Care Education/Training Program
PROC: (CPT 20680; principal; 2024-06-15 14:40)
DX: T84.84XA Pain due to internal orthopedic prosthetic devices, implants and grafts, initial encounter (principal); Z87.891 Personal history of nicotine dependence
CPT/HCPCS: 20680; 73090; 76000; 81025; J0131; J0690; J1885; J2175; J2250; J2704; J3010; J7030

== ENCOUNTER → 2024-06-30 14:58 | Outpatient (BNVA) | payer OTHER, SELFPAY | PROVIDERS: PCP Family Medicine; Visit Provider Student in an Organized Health Care Education/Training Program | DX: T84.84XA Pain due to internal orthopedic prosthetic devices, implants and grafts, initial encounter (principal); Y79.2 Prosthetic and other implants, materials and accessory orthopedic devices associated with adverse incidents | CPT/HCPCS: 73090 ==

== ENCOUNTER 2024-06-30 15:56 | Outpatient (CLI) | payer OTHER, SELFPAY | END 2024-06-30 15:57 | disposition home or self-care (01) | LOC: SPT 15:56 | PROVIDERS: PCP Family Medicine; Visit Provider Student in an Organized Health Care Education/Training Program | DX: Z46.89 Encounter for fitting and adjustment of other specified devices (principal); M25.532 Pain in left wrist | CPT/HCPCS: L3908 ==

== ENCOUNTER 2024-07-03 12:45 | Outpatient (RCR) | payer OTHER, SELFPAY | END 2024-08-01 23:59 | disposition home or self-care (01) | LOC: SOT 12:45 | PROVIDERS: Visit Provider Student in an Organized Health Care Education/Training Program | DX: T84.84XA Pain due to internal orthopedic prosthetic devices, implants and grafts, initial encounter (principal); X58.XXXA Exposure to other specified factors, initial encounter | CPT/HCPCS: 97022; 97110; 97140; 97165; 97530 ==

== ENCOUNTER → 2024-07-28 10:30 | Outpatient (BNVA) | payer OTHER, SELFPAY | PROVIDERS: PCP Family Medicine; Visit Provider Student in an Organized Health Care Education/Training Program | DX: T84.84XA Pain due to internal orthopedic prosthetic devices, implants and grafts, initial encounter (principal); Y79.2 Prosthetic and other implants, materials and accessory orthopedic devices associated with adverse incidents | CPT/HCPCS: 73090 ==

== ENCOUNTER 2024-08-02 06:00 | Outpatient (RCR) | payer OTHER, SELFPAY | END 2024-09-01 23:59 | disposition home or self-care (01) | LOC: SOT 06:00 | PROVIDERS: PCP Family Medicine; Visit Provider Student in an Organized Health Care Education/Training Program | DX: T84.84XA Pain due to internal orthopedic prosthetic devices, implants and grafts, initial encounter (principal); X58.XXXA Exposure to other specified factors, initial encounter | CPT/HCPCS: 97022; 97110 ==

== ENCOUNTER → 2024-08-18 10:46 | Outpatient (BNVA) | payer OTHER, SELFPAY | PROVIDERS: PCP Family Medicine; Visit Provider Family Medicine | DX: J06.9 Acute upper respiratory infection, unspecified (principal) | CPT/HCPCS: 87400; 87426 ==

== ENCOUNTER 2025-03-19 13:27 | Outpatient (CLI) | payer OTHER, SELFPAY ==
--- NOTE | 2025-03-19 13:30 | MM_ITS ---
WS: [id number] BILATERAL 3D TOMOSYNTHESIS DIGITAL SCREENING MAMMOGRAPHY WITH CAD CLINICAL INFORMATION: SCREENING HISTORY: Screening mammogram. No current complaints. COMPARISON: 2023 TECHNIQUE: Bilateral CC and MLO views. FINDINGS: The breasts are composed of heterogeneous fibroglandular density tissue, which can limit the detection of small underlying mass lesions. No suspicious mass, asymmetry, calcifications, or architectural distortion. No evidence of malignancy. Incidental punctate calcifications. MM/MM [facility] tomosynthesis [id number] IMPRESSION: DENSITY: The breasts are heterogeneously dense, which may obscure small masses. BI-RADS: 2 - Benign FOLLOW UP: 1 Year Follow-up Recommend return to annual screening mammography.
== END 2025-03-19 13:28 | disposition home or self-care (01) ==
LOC: RAD 13:27
PROVIDERS: PCP Family Medicine; Visit Provider Family Medicine
DX: Z12.31 Encounter for screening mammogram for malignant neoplasm of breast (principal); R92.323 Mammographic fibroglandular density, bilateral breasts; R92.1 Mammographic calcification found on diagnostic imaging of breast
CPT/HCPCS: 77063; 77067